=== PATIENT | female | born 1985 | race Caucasian/White ===

== ENCOUNTER 2020-05-15 22:20 | Emergency (ER) | payer MEDICAID ==
[2020-05-15 23:00] VITALS: BP 118/49; PULSE 65
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
== END 2020-05-15 23:38 | disposition home or self-care (01) ==
LOC: JP.ED 22:20
DX: F41.0 Panic disorder [episodic paroxysmal anxiety] (principal); F17.210 Nicotine dependence, cigarettes, uncomplicated; F32.9 Major depressive disorder, single episode, unspecified; Z88.5 Allergy status to narcotic agent; Z91.030 Bee allergy status; Z79.899 Other long term (current) drug therapy
CPT/HCPCS: 99284

== ENCOUNTER 2020-08-03 00:49 | Emergency (ER) | payer MEDICAID ==
[2020-08-03] MEDS ORDERED: Ondansetron 4 MG Tab.DIS PO ONE (01:00)
[2020-08-03] MEDS ORDERED: ClonazePAM 0.5 MG Tab PO ONE ×2 (01:03→02:07)
[2020-08-03 01:48] VITALS: BP 136/72; PULSE 89
[2020-08-03] MEDS ORDERED: Ibuprofen 400 MG Tab PO ONE (01:57)
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
== END 2020-08-03 02:30 | disposition home or self-care (01) ==
LOC: JP.ED 00:49
DX: F41.1 Generalized anxiety disorder (principal); F41.0 Panic disorder [episodic paroxysmal anxiety]; F45.8 Other somatoform disorders; Z72.0 Tobacco use; Z88.5 Allergy status to narcotic agent; Z91.030 Bee allergy status
CPT/HCPCS: 58301; 99283; A9270

== ENCOUNTER 2020-12-12 00:24 | Emergency (ER) | payer MEDICAID ==
[2020-12-12] MEDS ORDERED: diphenhydrAMINE 50 MG/ML SDV IVPUSH ONE (00:25)
[2020-12-12] MEDS ORDERED: Ketorolac 30 MG/ML SDV IVPUSH ONE (00:25)
[2020-12-12] MEDS ORDERED: Sodium Chloride 0.9% 10 ML Syringe FLUSH PRN (00:25)
[2020-12-12] MEDS ORDERED: Prochlorperazine 10 MG/2 ML SDV IVPUSH ONE (00:25)
[2020-12-12] MEDS ORDERED: Dexamethasone 4 MG/ML SDV IVPUSH ONE (00:25)
[2020-12-12] MEDS ORDERED: LORazepam 2 MG/ML SDV IVPUSH ONE (00:28)
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
[2020-12-12] MEDS ORDERED: Sodium Chloride 0.9% 1,000 ML IV ONE (00:47)
[2020-12-12 01:04] VITALS: BP 163/82; PULSE 78
--- NOTE | 2020-12-12 01:28 | CRLCT ---
INDICATION: Left sided headache TECHNIQUE: CT Head without i.v. contrast. Coronal and sagittal reformats were obtained. COMPARISON: None FINDINGS: CSF space: The ventricles are normal for age. Brain: No evidence of mass, acute infarction or hemorrhage is seen. No mass-effect or midline shift is seen. The brain parenchyma is otherwise normal in appearance with preservation of the trimble-white matter junction. Calvarium: The visualized paranasal sinuses are well aerated. The mastoid air cells are clear. The visualized orbits are grossly unremarkable. The calvarium is unremarkable in appearance with no fractures identified. IMPRESSION: 1. No evidence of acute infarction, intracranial hemorrhage, or mass-effect seen. Please note that all CT scans at this facility use dose modulation, iterative reconstruction, and/or weight-based dosing when appropriate to reduce radiation dose to as low as reasonably achievable. Dictated by: Rodriguez Reynoso MD @ 12/12/2020 01:26:25 (Electronically Signed)
== END 2020-12-12 02:43 | disposition home or self-care (01) ==
LOC: JP.ED 00:24
DX: G43.119 Migraine with aura, intractable, without status migrainosus (principal); Z88.5 Allergy status to narcotic agent; Z91.030 Bee allergy status
CPT/HCPCS: 36415; 70450; 80048; 85025; 85610; 85730; 96374; 96375; 99283; 99285; J0780; J1100; J1200; J1885; J2060; J7030

== ENCOUNTER 2021-05-24 21:23 | Emergency (ER) | payer MEDICAID ==
[2021-05-24 22:00] VITALS: BP 134/80; PULSE 109
[2021-05-24] MEDS ORDERED: LORazepam 0.5 MG Tab PO ONE (22:00)
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
== END 2021-05-24 22:26 | disposition home or self-care (01) ==
LOC: JP.ED 21:23
DX: F41.0 Panic disorder [episodic paroxysmal anxiety] (principal); Z88.5 Allergy status to narcotic agent; Z91.030 Bee allergy status
CPT/HCPCS: 99283; A9270

== ENCOUNTER 2022-01-21 09:07 | Emergency (ER) | payer MEDICAID ==
[2022-01-21 09:31] VITALS: BP 136/89; PULSE 96
[2022-01-23 07:14] LABS: CHLAMYDIA TRACHOMATIS, NAA Negative (Negative); NEISSERIA GONORRHOEAE, NAA Negative (Negative)
== END 2022-01-21 11:35 | disposition home or self-care (01) ==
LOC: JP.ED 09:07
DX: T71.193A Asphyxiation due to mechanical threat to breathing due to other causes, assault, initial encounter (principal); S00.03XA Contusion of scalp, initial encounter; S70.11XA Contusion of right thigh, initial encounter; S20.222A Contusion of left back wall of thorax, initial encounter; S10.93XA Contusion of unspecified part of neck, initial encounter; S60.222A Contusion of left hand, initial encounter; Y04.0XXA Assault by unarmed brawl or fight, initial encounter
CPT/HCPCS: 70450; 70450-26; 71250; 71250-26; 72125; 72125-26; 81025; 87491; 87591; 99283; 99284-25

== ENCOUNTER 2022-03-21 10:58 | Emergency (ER) | payer MEDICAID ==
[2022-03-21 11:41] VITALS: BP 118/74; PULSE 60
[2022-03-21] MEDS ORDERED: Ketorolac 30 MG/ML SDV IM ONE (12:31)
== END 2022-03-21 13:02 | disposition home or self-care (01) ==
LOC: JP.ED 10:58
DX: M26.602 Left temporomandibular joint disorder, unspecified (principal); R51.9 Headache, unspecified; K02.9 Dental caries, unspecified; Z88.5 Allergy status to narcotic agent; Z91.030 Bee allergy status; Z79.899 Other long term (current) drug therapy
CPT/HCPCS: 96372; 99283

== ENCOUNTER 2023-01-07 22:28 | Emergency (ER) | payer MEDICAID ==
[2023-01-07 22:43] VITALS: BP 123/81; PULSE 105
[2023-01-07] MEDS ORDERED: Bupivacaine 0.5%/EPINEPHrine 1:200,000 1.8 ML Cartridge INJECT ONE (23:04)
[2023-01-08] MEDS ORDERED: Ketorolac 30 MG/ML SDV IM ONE (00:09)
== END 2023-01-08 00:30 | disposition home or self-care (01) ==
LOC: JP.ED 22:28
DX: K04.7 Periapical abscess without sinus (principal); K02.9 Dental caries, unspecified; Z88.5 Allergy status to narcotic agent; Z91.030 Bee allergy status; Z72.0 Tobacco use
CPT/HCPCS: 64400; 96372; 99282; J1885; J3490

== ENCOUNTER 2023-01-16 06:57 | Emergency (ER) | payer MEDICAID ==
[2023-01-16 07:06] VITALS: BP 140/79; PULSE 114
[2023-01-16] MEDS ORDERED: Sodium Chloride 0.9% 10 ML Syringe FLUSH PRN (07:50)
[2023-01-16] MEDS ORDERED: Metoclopramide 10 MG Tab PO ONE (08:05)
[2023-01-16] MEDS ORDERED: Calcium Carbonate 500 MG Tab.Chew PO ONE (08:06)
[2023-01-16] MEDS ORDERED: Gabapentin 400 MG Cap PO ONE (08:06)
[2023-01-16 08:36] LABS: BASOPHILS ABSOLUTE AUTO 0.02 K/uL (0.00-0.10); BASOPHILS PERCENT AUTO 0.3 % (0.1-1.3); EOSINOPHILS ABSOLUTE AUTO 0.01 K/uL (0.00-0.40); EOSINOPHILS PERCENT AUTO 0.1 % (0.0-5.4); HEMATOCRIT 37.1 % (34.3-46.0); HEMOGLOBIN 12.8 g/dL (11.2-15.5); IMMATURE GRAN ABSOLUTE AUTO 0.07 K/uL (0.00-0.23); LYMPHOCYTES ABSOLUTE AUTO 1.56 K/uL (0.8-3.3); LYMPHOCYTES PERCENT AUTO 21.7 % (11.4-47.7); MEAN CORPUSCULAR HEMOGLOBIN 30.2 pg (31.6-35.5); MEAN CORPUSCULAR HGB CONC 34.5 g/dL (31.6-35.5); MEAN CORPUSCULAR VOLUME 87.5 fL (81.4-99.0); MONOCYTES ABSOLUTE AUTO 0.45 K/uL (0.20-0.90); MONOCYTES PERCENT AUTO 6.3 % (3.3-12.6); NEUTROPHILS ABSOLUTE AUTO 5.08 K/uL (1.0-7.6); NEUTROPHILS PERCENT AUTO 70.6 % (40.0-78.1); PLATELET COUNT,PLT 232 K/uL (130-375); RED BLOOD CELL COUNT 4.24 M/uL (3.77-5.24); WHITE BLOOD CELL COUNT,WBC 7.2 K/uL (3.2-11.0)
== END 2023-01-16 09:44 | disposition home or self-care (01) ==
LOC: JP.ED 06:57
DX: O99.341 Other mental disorders complicating pregnancy, first trimester (principal); F41.0 Panic disorder [episodic paroxysmal anxiety]; F41.1 Generalized anxiety disorder; O99.891 Other specified diseases and conditions complicating pregnancy; R10.84 Generalized abdominal pain; O99.321 Drug use complicating pregnancy, first trimester; F11.90 Opioid use, unspecified, uncomplicated; O99.331 Smoking (tobacco) complicating pregnancy, first trimester; F17.210 Nicotine dependence, cigarettes, uncomplicated; Z98.890 Other specified postprocedural states; Z88.5 Allergy status to narcotic agent; Z91.030 Bee allergy status; Z3A.12 12 weeks gestation of pregnancy
CPT/HCPCS: 36415; 76801; 85025; 99285; A9270